=== PATIENT | female | born 1980 | race Caucasian/White ===

== ENCOUNTER 2024-01-11 08:41 | Outpatient (AMB) | payer OTHER, SELFPAY ==
[2024-01-11 08:45] VITALS: BP 118/62; PULSE 69; O2SAT 99; BMI 25.7
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
== END 2024-01-11 09:22 | disposition home or self-care (01) ==
PROVIDERS: PCP Pediatrics; Referring Provider Pediatrics; Visit Provider Student in an Organized Health Care Education/Training Program
DX: R76.8 Other specified abnormal immunological findings in serum (principal)
CPT/HCPCS: 99203

== ENCOUNTER → 2024-01-11 08:41 | Outpatient (BNVA) | payer OTHER, SELFPAY | PROVIDERS: PCP Pediatrics; Referring Provider Pediatrics; Visit Provider Student in an Organized Health Care Education/Training Program ==